=== PATIENT | male | born 1990 | race Caucasian/White ===

== ENCOUNTER 2016-12-26 11:48 | Emergency (ER) | payer OTHER ==
[2016-12-26 11:56] VITALS: BP 126/71
[2016-12-26] MEDS ORDERED: TETRACAINE HCL 0.5% OPH SOLN 2 ML OS ONE (12:01)
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
[2016-12-26] MEDS ORDERED: DIPH/PERTUSS(ACELL)/TETANUS VAC/PF 0.5 ML SYR (>=10YO) IM ONE (12:16)
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
== END 2016-12-26 12:53 | disposition home or self-care (01) ==
LOC: ER 11:48
DX: S05.92XA Unspecified injury of left eye and orbit, initial encounter (principal); W22.8XXA Striking against or struck by other objects, initial encounter; Y93.89 Activity, other specified; Y99.0 Civilian activity done for income or pay; H16.002 Unspecified corneal ulcer, left eye; F17.210 Nicotine dependence, cigarettes, uncomplicated
CPT/HCPCS: 90471; 90715; 99283